=== PATIENT | female | born 1960 | race Caucasian/White ===

== ENCOUNTER 2023-02-08 12:01 | Emergency (ER) | payer OTHER ==
[~2023-02-08] VITALS: Ht 157.5 cm; Wt 59.1 kg
[~2023-02-08 12:01] MED LIST: NOCURR
[2023-02-08 12:04] VITALS: BP 119/66; PULSE 74; RESP 16; TEMP 98.5
[2023-02-08 12:52] LABS: APPEARANCE,URINE CLEAR (CLEAR); BILIRUBIN,URINE NEGATIVE (NEGATIVE); COLOR,URINE LIGHT YELLOW (YELLOW); GLUCOSE, URINE (UA) NEGATIVE (NEGATIVE); KETONES,URINE NEGATIVE (NEGATIVE); LEUKOCYTE ESTERASE ,URINE LARGE (NEGATIVE); NITRATE,URINE NEGATIVE (NEGATIVE); OCCULT BLOOD,URINE TRACE (NEGATIVE); PH,URINE 7.5 (5.0-8.0); PROTEIN,URINE NEGATIVE (NEGATIVE); SPECIFIC GRAVITIY, URINE 1.004 (1.003-1.030); UROBILINOGEN,URINE <=1.0 mg/dL (<=1.0)
[2023-02-08 12:55] LABS: RBC,URINE 0-2 /HPF (0-2)
[2023-02-08 12:56] LABS: BACTERIA,URINE Moderate /HPF (None Seen); SQUAMOUS EPITHELIAL CELL,UR Few /LPF (None Seen)
[2023-02-08] MEDS ORDERED: CEPH-558 PO (14:20)
[2023-02-08] MEDS ORDERED: PHEN-846 PO (14:20)
== END 2023-02-08 14:27 | disposition home or self-care (01) ==
LOC: EMS 12:08
DX: N39.0 Urinary tract infection, site not specified (principal); J45.909 Unspecified asthma, uncomplicated; Z87.440 Personal history of urinary (tract) infections; Z88.2 Allergy status to sulfonamides; Z88.8 Allergy status to other drugs, medicaments and biological substances
CPT/HCPCS: 81001; 87086; 87186; 99283

== ENCOUNTER 2024-07-16 19:27 | Emergency (ER) | payer MEDICAID, OTHER ==
[~2024-07-16] VITALS: Ht 157.5 cm; Wt 70.5 kg
[~2024-07-16 19:27] MED LIST changes: +CEPH-558 PO; -NOCURR; +PHEN-846 PO
[2024-07-16 19:33] VITALS: TEMP 98
[2024-07-16 19:49] LABS: APPEARANCE,URINE HAZY (CLEAR); BILIRUBIN,URINE NEGATIVE (NEGATIVE); COLOR,URINE YELLOW (YELLOW); GLUCOSE, URINE (UA) NEGATIVE (NEGATIVE); LEUKOCYTE ESTERASE ,URINE LARGE (NEGATIVE); NITRATE,URINE NEGATIVE (NEGATIVE); OCCULT BLOOD,URINE SMALL (NEGATIVE); PH,URINE 5.5 (5.0-8.0); PROTEIN,URINE TRACE mg/dL (NEGATIVE); SPECIFIC GRAVITIY, URINE 1.021 (1.003-1.030); UROBILINOGEN,URINE <=1.0 mg/dL (<=1.0)
[2024-07-16 20:12] LABS: BACTERIA,URINE Few /HPF (None Seen); SQUAMOUS EPITHELIAL CELL,UR Many /LPF (None Seen); WBC,URINE 51-100 /HPF (0-5)
[2024-07-16] MEDS ORDERED: PHEN-846 PO (20:23)
[2024-07-16] MEDS ORDERED: CEPH-558 PO (20:23)
[2024-07-16 20:34] VITALS: BP 122/72; PULSE 78; RESP 16; O2SAT 98
[2024-07-16] MEDS: CEPHALEXIN MONOHYDRATE 500 MG CAPSULE PO ONE (20:37)
== END 2024-07-16 21:03 | disposition home or self-care (01) ==
LOC: EMS 19:27
DX: N39.0 Urinary tract infection, site not specified (principal); J45.909 Unspecified asthma, uncomplicated; Z88.1 Allergy status to other antibiotic agents; Z88.2 Allergy status to sulfonamides
CPT/HCPCS: 81001; 87086; 99283